=== PATIENT | female | born 1995 | race African-American/Black ===

== ENCOUNTER 2017-01-24 02:13 | Emergency (ER) | payer MEDICAID ==
[~2017-01-24] VITALS: Ht 162.6 cm; Wt 86.0 kg
[~2017-01-24 02:13] MED LIST: MOTRIN; TAM75 PO
[2017-01-24] MEDS ORDERED: DICYCLOMINE 10 MG/5 ML ORAL SYR PO STA (03:25)
[2017-01-24] MEDS ORDERED: MAGNESIUM/ALUMINUM HYDROXIDE/SIMETHICONE 30ML UDC PO STA (03:25)
[2017-01-24] MEDS ORDERED: FAMOTIDINE 20MG/2ML VIAL IV STA (03:25)
[2017-01-24] MEDS ORDERED: ONDANSETRON 4MG ODT PO ONE (03:30)
[2017-01-24] MEDS ORDERED: FAMOTIDINE 20MG TABLET PO ONE (03:30)
[2017-01-24 03:46] LABS: BASOPHILS % 0.4 % (0.0-2.0); DIFFERENTIAL COMMENT 0; EOSINOPHILS % 5.9 % (0.0-5.0); HEMOGLOBIN. 12.2 g/dL (12.0-16.0); LYMPHOCYTES % 29.9 % (20.0-50.0); MEAN CORPUSCULAR HEMOGLOBIN 24.5 pg (28.0-32.0); MEAN CORPUSCULAR VOLUME 76.4 fL (81.0-99.0); MEAN PLATELET VOLUME 8.4 fl (7.4-10.4); MONOCYTES % 8.2 % (2.0-8.0); NEUTROPHILS % 55.6 % (40.0-76.0); PLATELET 248 x1000/uL (130-400); RED BLOOD CELL COUNT 4.98 mill/uL (4.2-5.4); RED CELL DISTRIBUTION WIDTH 14.2 % (11.6-14.6); WHITE BLOOD COUNT 6.1 x1000/uL (4.5-11.0)
[2017-01-24 03:57] LABS: ALANINE AMINOTRANSFERASE 21 IU/L (13-61); ALBUMIN 3.8 g/dL (3.4-5.0); ANION GAP 13; CALCIUM 9.7 mg/dL (8.5-10.1); CARBON DIOXIDE 26 mEq/L (21-32); CHLORIDE 104 mEq/L (98-107); INDEX HEMOLYSI 1 (1-3); INDEX ICTERIC 1 (1-4); INDEX LIPEMIC 1 (1-3); LIPASE 135 IU/L (73-393); UREA NITROGEN BLOOD 8 mg/dL (7-21); eGFR > 60 mL/min (>60)
[2017-01-24 03:58] LABS: CLARITY URINE CLOUDY (CLEAR); COLOR URINE YELLOW (YELLOW); GLUCOSE URINE NEGATIVE (NEGATIVE); KETONES URINE NEGATIVE (NEGATIVE); LEUKOCYTE ESTERASE URINE NEGATIVE (NEGATIVE); NITRITE URINE NEGATIVE (NEGATIVE); OCCULT BLOOD URINE NEGATIVE (NEGATIVE); PH URINE 5.5 (4.5-8.0); PROTEIN URINE NEGATIVE (NEGATIVE); SPECIFIC GRAVITY URINE 1.024 (1.005-1.030); UROBILINOGEN URINE 0.2 E.U./dL (0.2-1.0)
[2017-01-24 04:16] LABS: RBC URINE 0-2 /hpf (0-2)
[2017-01-24 04:17] LABS: BACTERIA URINE 1+; MUCUS URINE TRACE /lpf (< = 2+); SQUAMOUS EPITHELIAL CELL URINE 2+ /lpf (RARE/1+)
[2017-01-24 04:45] VITALS: BP 110/77
== END 2017-01-24 06:10 | disposition home or self-care (01) ==
LOC: ER 02:18
DX: K52.9 Noninfective gastroenteritis and colitis, unspecified (principal); R11.0 Nausea
CPT/HCPCS: 36415; 80053; 81001; 81025; 83690; 85025; 99284; Q0162

== ENCOUNTER 2017-02-27 17:06 | Emergency (ER) | payer MEDICAID ==
[~2017-02-27] VITALS: Ht 160 cm; Wt 94.0 kg
[2017-02-27] MEDS ORDERED: MAGNESIUM/ALUMINUM HYDROXIDE/SIMETHICONE 30ML UDC PO STA (22:46)
[2017-02-27] MEDS ORDERED: ONDANSETRON 4MG ODT PO STA (22:46)
[2017-02-27] MEDS ORDERED: ACETAMINOPHEN 325MG TABLET PO STA (22:46)
[2017-02-27 23:24] LABS: CLARITY URINE CLEAR (CLEAR); COLOR URINE YELLOW (YELLOW); GLUCOSE URINE NEGATIVE (NEGATIVE); KETONES URINE TRACE (NEGATIVE); LEUKOCYTE ESTERASE URINE NEGATIVE (NEGATIVE); NITRITE URINE NEGATIVE (NEGATIVE); OCCULT BLOOD URINE NEGATIVE (NEGATIVE); PH URINE 5.5 (4.5-8.0); PROTEIN URINE NEGATIVE (NEGATIVE); SPECIFIC GRAVITY URINE 1.027 (1.005-1.030)
[2017-02-27 23:37] LABS: *AMPHETAMINES SCREEN URINE NEGATIVE (NEGATIVE); *BARBITURATES SCREEN URINE NEGATIVE (NEGATIVE); *BENZODIAZEPINES SCREEN URINE NEGATIVE (NEGATIVE); *COCAINE SCREEN URINE NEGATIVE (NEGATIVE); CANNABINOID URINE SCREEN NEGATIVE (NEGATIVE); ECSTASY MDMA SCREEN URINE NEGATIVE (NEGATIVE); METHADONE URINE SCREEN NEGATIVE (NEGATIVE); OPIATES URINE SCREEN NEGATIVE (NEGATIVE); PHENCYCLIDINE URINE SCREEN NEGATIVE (NEGATIVE)
[2017-02-27 23:45] VITALS: BP 143/102
[2017-02-27 23:56] LABS: BASOPHILS % 0.7 % (0.0-2.0); DIFFERENTIAL COMMENT 0; HEMATOCRIT. 39.6 % (36.0-48.0); HEMOGLOBIN. 12.6 g/dL (12.0-16.0); LYMPHOCYTES % 34.3 % (20.0-50.0); MEAN CORPUSCULAR HEMOGLOBIN 24.2 pg (28.0-32.0); MEAN CORPUSCULAR HGB CONC 31.7 g/dL (31.0-37.0); MEAN CORPUSCULAR VOLUME 76.3 fL (81.0-99.0); MEAN PLATELET VOLUME 8.2 fl (7.4-10.4); MONOCYTES % 7.6 % (2.0-8.0); NEUTROPHILS % 52.4 % (40.0-76.0); PLATELET 243 x1000/uL (130-400); RED CELL DISTRIBUTION WIDTH 13.6 % (11.6-14.6); WHITE BLOOD COUNT 7.3 x1000/uL (4.5-11.0)
[2017-02-28 00:01] LABS: PROTHROMBIN TIME 10.7 sec
[2017-02-28 00:02] LABS: CHLORIDE 103 mEq/L (98-107); INDEX HEMOLYSI 1 (1-3); INDEX ICTERIC 1 (1-4); INDEX LIPEMIC 1 (1-3)
[2017-02-28 00:11] LABS: ALANINE AMINOTRANSFERASE 15 IU/L (13-61); ALBUMIN 3.8 g/dL (3.4-5.0); ANION GAP 12; CALCIUM 9.5 mg/dL (8.5-10.1); CARBON DIOXIDE 27 mEq/L (21-32); LIPASE 116 IU/L (73-393); UREA NITROGEN BLOOD 12 mg/dL (7-21); eGFR > 60 mL/min (>60)
== END 2017-02-28 01:20 | disposition home or self-care (01) ==
LOC: ER 23:09
DX: R10.9 Unspecified abdominal pain (principal)
CPT/HCPCS: 36415; 80053; 80305; 81003; 81025; 83690; 85025; 85610; 99284; Q0162

== ENCOUNTER 2017-05-18 23:17 | Emergency (ER) | payer MEDICAID ==
[~2017-05-18] VITALS: Ht 157.5 cm; Wt 98.0 kg
[2017-05-19] MEDS ORDERED: KETOROLAC 30MG/ML VIAL IV ONE (06:30)
[2017-05-19] MEDS ORDERED: KETOROLAC 30MG/ML VIAL IM ONE (06:45)
[2017-05-19 06:56] LABS: BASOPHILS % 0.9 % (0.0-2.0); EOSINOPHILS % 5.1 % (0.0-5.0); HEMATOCRIT. 37.2 % (36.0-48.0); LYMPHOCYTES % 36.8 % (20.0-50.0); MEAN CORPUSCULAR HEMOGLOBIN 24.4 pg (28.0-32.0); MEAN CORPUSCULAR VOLUME 75.6 fL (81.0-99.0); MEAN PLATELET VOLUME 8.1 fl (7.4-10.4); MONOCYTES % 6.5 % (2.0-8.0); NEUTROPHILS % 50.7 % (40.0-76.0); PLATELET 225 x1000/uL (130-400); RED BLOOD CELL COUNT 4.91 mill/uL (4.2-5.4); RED CELL DISTRIBUTION WIDTH 14.3 % (11.6-14.6)
[2017-05-19 07:09] LABS: CARBON DIOXIDE 27 mEq/L (21-32); CHLORIDE 106 mEq/L (98-107)
[2017-05-19 10:35] VITALS: BP 110/75
[2017-05-23 08:16] LABS: CHLAMYDIA TRACHOMATIS NAA Negative (Negative); NEISSERIA GONORRHOEAE NAA Negative (Negative)
== END 2017-05-19 10:54 | disposition home or self-care (01) ==
LOC: ER 23:17
DX: R10.9 Unspecified abdominal pain (principal)
CPT/HCPCS: 36415; 80053; 81025; 85025; 87491; 87591; 96372; 99284; J1885; Z7610

== ENCOUNTER 2017-06-01 22:37 | Emergency (ER) | payer SELFPAY ==
[~2017-06-01] VITALS: Ht 157.5 cm; Wt 95.0 kg
[2017-06-02 02:06] VITALS: BP 111/72
[2017-06-02 03:03] LABS: CLARITY URINE CLOUDY (CLEAR); COLOR URINE YELLOW (YELLOW); GLUCOSE URINE NEGATIVE (NEGATIVE); KETONES URINE TRACE (NEGATIVE); LEUKOCYTE ESTERASE URINE 3+ (NEGATIVE); NITRITE URINE NEGATIVE (NEGATIVE); OCCULT BLOOD URINE 1+ (NEGATIVE); PH URINE 5.5 (4.5-8.0); PROTEIN URINE TRACE (NEGATIVE); SPECIFIC GRAVITY URINE 1.025 (1.005-1.030); UROBILINOGEN URINE 0.2 E.U./dL (0.2-1.0)
[2017-06-02] MEDS ORDERED: PHENAZOPYRIDINE HCL 200MG TABLET PO NR (03:30)
== END 2017-06-02 04:04 | disposition home or self-care (01) ==
LOC: ER 22:37
DX: N94.9 Unspecified condition associated with female genital organs and menstrual cycle (principal)
CPT/HCPCS: 81001; 81025; 99283

== ENCOUNTER 2017-07-04 19:14 | Emergency (ER) | payer MEDICAID ==
[~2017-07-04] VITALS: Ht 160 cm; Wt 86.0 kg
[2017-07-05 00:41] LABS: CLARITY URINE CLEAR (CLEAR); COLOR URINE YELLOW (YELLOW); GLUCOSE URINE NEGATIVE (NEGATIVE); KETONES URINE NEGATIVE (NEGATIVE); LEUKOCYTE ESTERASE URINE 2+ (NEGATIVE); NITRITE URINE NEGATIVE (NEGATIVE); OCCULT BLOOD URINE NEGATIVE (NEGATIVE); PROTEIN URINE NEGATIVE (NEGATIVE); SPECIFIC GRAVITY URINE 1.021 (1.005-1.030)
[2017-07-05] MEDS ORDERED: CEFTRIAXONE SODIUM 250 MG/VIAL IM ONE (01:00)
[2017-07-05] MEDS ORDERED: DOXYCYCLINE HYCLATE 100MG CAPSULE PO ONE (01:00)
[2017-07-05] MEDS ORDERED: LIDOCAINE HCL 1% 20ML VIAL (Pyxis) INJ INFIL ONE (01:15)
[2017-07-05 02:35] VITALS: BP 123/76
[2017-07-07 08:17] LABS: CHLAMYDIA TRACHOMATIS NAA Negative (Negative); NEISSERIA GONORRHOEAE NAA Negative (Negative)
== END 2017-07-05 03:07 | disposition home or self-care (01) ==
LOC: ER 19:14
DX: N73.9 Female pelvic inflammatory disease, unspecified (principal); N39.0 Urinary tract infection, site not specified
CPT/HCPCS: 81001; 81025; 87210; 87491; 87591; 96372; 99284; J0696; J3490; Z7610

== ENCOUNTER 2017-09-26 17:07 | Emergency (ER) | payer MEDICAID ==
[~2017-09-26] VITALS: Ht 157.5 cm; Wt 91.0 kg
[2017-09-26 21:31] LABS: CLARITY URINE CLEAR (CLEAR); COLOR URINE YELLOW (YELLOW); GLUCOSE URINE NEGATIVE (NEGATIVE); KETONES URINE NEGATIVE (NEGATIVE); LEUKOCYTE ESTERASE URINE 3+ (NEGATIVE); NITRITE URINE NEGATIVE (NEGATIVE); OCCULT BLOOD URINE NEGATIVE (NEGATIVE); PH URINE 6.5 (4.5-8.0); PROTEIN URINE NEGATIVE (NEGATIVE); SPECIFIC GRAVITY URINE 1.014 (1.005-1.030)
[2017-09-27] MEDS ORDERED: AZITHROMYCIN 500 MG TABLET PO ONE (00:30)
[2017-09-27] MEDS ORDERED: CEFTRIAXONE SODIUM 250 MG/VIAL IM ONE (00:30)
[2017-09-27] MEDS ORDERED: FLUCONAZOLE 150MG TABLET PO ONE (00:30)
[2017-09-27] MEDS ORDERED: METRONIDAZOLE 500MG TABLET PO ONE (00:30)
[2017-09-27] MEDS ORDERED: LIDOCAINE HCL 1% 20ML VIAL (Pyxis) INJ INFIL ONE (00:30)
[2017-09-27] MEDS ORDERED: METRONIDAZOLE 500MG TABLET PO NR (01:15)
[2017-09-27] MEDS ORDERED: ONDANSETRON 4MG ODT PO NR (01:15)
[2017-09-27 02:08] VITALS: BP 120/85
[2017-10-01 15:07] LABS: CHLAMYDIA TRACHOMATIS NAA Negative (Negative); NEISSERIA GONORRHOEAE NAA Negative (Negative)
== END 2017-09-27 02:12 | disposition home or self-care (01) ==
LOC: ER 18:13
DX: A59.9 Trichomoniasis, unspecified (principal); Z88.0 Allergy status to penicillin; Z87.440 Personal history of urinary (tract) infections
CPT/HCPCS: 81001; 81025; 87491; 87591; 96372; 99284; J0696; J3490; Q0162

== ENCOUNTER 2018-03-06 10:25 | Emergency (ER) | payer MEDICAID ==
[~2018-03-06] VITALS: Ht 160 cm; Wt 82.0 kg
[2018-03-06] MEDS ORDERED: LIDOCAINE HCL 1% 20ML VIAL (Pyxis) INJ INFIL ONE (13:00)
[2018-03-06] MEDS ORDERED: AZITHROMYCIN 500 MG TABLET PO ONE (13:00)
[2018-03-06] MEDS ORDERED: CEFTRIAXONE SODIUM 250 MG/VIAL IM ONE (13:00)
[2018-03-06] MEDS ORDERED: LIDOCAINE HCL/PF 1% 10 MG/ML 30ML VIAL INFIL ONE (13:30)
[2018-03-06 13:35] LABS: CLARITY URINE CLOUDY (CLEAR); COLOR URINE DARK YELLOW (YELLOW); KETONES URINE TRACE (NEGATIVE); LEUKOCYTE ESTERASE URINE 2+ (NEGATIVE); NITRITE URINE NEGATIVE (NEGATIVE); OCCULT BLOOD URINE NEGATIVE (NEGATIVE); PROTEIN URINE TRACE (NEGATIVE); SPECIFIC GRAVITY URINE 1.032 (1.005-1.030)
[2018-03-06 15:00] VITALS: BP 128/78
== END 2018-03-06 15:19 | disposition home or self-care (01) ==
LOC: ER 11:36
DX: A59.9 Trichomoniasis, unspecified (principal); N39.0 Urinary tract infection, site not specified; F17.200 Nicotine dependence, unspecified, uncomplicated; Z88.0 Allergy status to penicillin
CPT/HCPCS: 81003; 81025; 87086; 87210; 87491; 87591; 96372; 99284; J0696; J3490

== ENCOUNTER 2018-04-20 03:30 | Emergency (ER) | payer MEDICAID ==
[~2018-04-20] VITALS: Ht 172.7 cm; Wt 95.0 kg
[2018-04-20] MEDS ORDERED: KETOROLAC 60MG/2ML VIAL IM ONE (06:30)
[2018-04-20 08:41] VITALS: BP 101/60
== END 2018-04-20 08:43 | disposition home or self-care (01) ==
LOC: ER 03:30
DX: S00.83XA Contusion of other part of head, initial encounter (principal); S40.812A Abrasion of left upper arm, initial encounter; Z88.0 Allergy status to penicillin; Y04.0XXA Assault by unarmed brawl or fight, initial encounter; Y93.89 Activity, other specified; Y92.018 Other place in single-family (private) house as the place of occurrence of the external cause
CPT/HCPCS: 70160; 96372; 99284; J1885

== ENCOUNTER 2018-05-12 09:30 | Emergency (ER) | payer MEDICAID ==
[~2018-05-12] VITALS: Ht 160 cm; Wt 96.0 kg
[2018-05-12 10:45] LABS: CLARITY URINE CLOUDY (CLEAR); COLOR URINE YELLOW (YELLOW); KETONES URINE NEGATIVE (NEGATIVE); LEUKOCYTE ESTERASE URINE 3+ (NEGATIVE); NITRITE URINE NEGATIVE (NEGATIVE); OCCULT BLOOD URINE TRACE (NEGATIVE); PROTEIN URINE NEGATIVE (NEGATIVE); SPECIFIC GRAVITY URINE 1.022 (1.005-1.030); UROBILINOGEN URINE 0.2 E.U./dL (0.2-1.0)
[2018-05-12] MEDS ORDERED: LIDOCAINE HCL 1% 20ML VIAL (Pyxis) INJ INFIL ONE (11:15)
[2018-05-12] MEDS ORDERED: CEFTRIAXONE SODIUM 250 MG/VIAL IM ONE (11:15)
[2018-05-12] MEDS ORDERED: AZITHROMYCIN 500 MG TABLET PO ONE (11:15)
[2018-05-12] MEDS: LIDOCAINE HCL/PF 1% 10 MG/ML 5ML VIAL IJ NR ×2 (12:04→14:08)
[2018-05-12 14:10] VITALS: BP 132/78
[2018-05-16 04:17] LABS: CHLAMYDIA TRACHOMATIS NAA Negative (Negative); NEISSERIA GONORRHOEAE NAA Negative (Negative)
== END 2018-05-12 14:10 | disposition home or self-care (01) ==
LOC: ER 09:34
DX: N73.8 Other specified female pelvic inflammatory diseases (principal); N39.0 Urinary tract infection, site not specified; Z88.0 Allergy status to penicillin
CPT/HCPCS: 81003; 81025; 87077; 87086; 87210; 87491; 87591; 96372; 99284; J0696; J3490

== ENCOUNTER 2018-05-25 12:30 | Emergency (ER) | payer MEDICAID ==
[~2018-05-25] VITALS: Ht 160 cm; Wt 97.0 kg
[2018-05-25 12:59] LABS: CLARITY URINE CLOUDY (CLEAR); COLOR URINE YELLOW (YELLOW); KETONES URINE NEGATIVE (NEGATIVE); LEUKOCYTE ESTERASE URINE 3+ (NEGATIVE); NITRITE URINE NEGATIVE (NEGATIVE); OCCULT BLOOD URINE NEGATIVE (NEGATIVE); PROTEIN URINE NEGATIVE (NEGATIVE); SPECIFIC GRAVITY URINE 1.018 (1.005-1.030); UROBILINOGEN URINE 0.2 E.U./dL (0.2-1.0)
[2018-05-25 16:15] VITALS: BP 130/80
== END 2018-05-25 16:53 | disposition home or self-care (01) ==
LOC: ER 12:44
DX: N39.0 Urinary tract infection, site not specified (principal); N89.8 Other specified noninflammatory disorders of vagina; Z88.0 Allergy status to penicillin
CPT/HCPCS: 81003; 81025; 87086; 87106; 99284

== ENCOUNTER 2018-09-08 02:58 | Emergency (ER) | payer MEDICAID ==
[~2018-09-08] VITALS: Ht 160 cm; Wt 103.0 kg
[2018-09-08] MEDS ORDERED: ACETAMINOPHEN 325MG TABLET PO ONE (05:00)
[2018-09-08 05:03] VITALS: BP 112/58
== END 2018-09-08 05:06 | disposition home or self-care (01) ==
LOC: ER 04:06
DX: S09.8XXA Other specified injuries of head, initial encounter (principal); R42 Dizziness and giddiness; R53.1 Weakness; V49.59XA Passenger injured in collision with other motor vehicles in traffic accident, initial encounter; Y93.89 Activity, other specified; Y92.89 Other specified places as the place of occurrence of the external cause; Y99.8 Other external cause status; Z87.440 Personal history of urinary (tract) infections; Z88.0 Allergy status to penicillin
CPT/HCPCS: 81025; 99284

== ENCOUNTER 2018-10-02 02:04 | Emergency (ER) | payer MEDICAID ==
[~2018-10-02] VITALS: Ht 160 cm; Wt 101.0 kg
[2018-10-02] MEDS ORDERED: LIDOCAINE HCL 1% 20ML VIAL (Pyxis) INJ INFIL ONE (03:00)
[2018-10-02] MEDS ORDERED: AZITHROMYCIN 500 MG TABLET PO ONE (03:00)
[2018-10-02] MEDS ORDERED: CEFTRIAXONE SODIUM 250 MG/VIAL IM ONE (03:00)
[2018-10-02 05:00] VITALS: BP 114/71
[2018-10-04 04:15] LABS: CHLAMYDIA TRACHOMATIS NAA Negative (Negative); NEISSERIA GONORRHOEAE NAA Negative (Negative)
== END 2018-10-02 05:27 | disposition home or self-care (01) ==
LOC: ER 04:51
DX: N89.8 Other specified noninflammatory disorders of vagina (principal); L50.9 Urticaria, unspecified
CPT/HCPCS: 81025; 87210; 87491; 87591; 96372; 99284; J0696

== ENCOUNTER 2019-04-23 01:32 | Emergency (ER) | payer MEDICAID ==
[~2019-04-23] VITALS: Ht 160 cm; Wt 96.0 kg
[2019-04-23 01:50] VITALS: BP 123/74
== END 2019-04-23 02:58 | disposition home or self-care (01) ==
LOC: ER 01:56
DX: J02.9 Acute pharyngitis, unspecified (principal)
CPT/HCPCS: 99283

== ENCOUNTER 2019-04-24 09:08 | Emergency (ER) | payer MEDICAID ==
[~2019-04-24] VITALS: Ht 157.5 cm; Wt 97.0 kg
[2019-04-24] MEDS ORDERED: DEXAMETHASONE 10 MG/ML VIAL PO ONE (10:30)
[2019-04-24] MEDS ORDERED: KETOROLAC 60MG/2ML VIAL IM ONE (10:30)
[2019-04-24 11:35] VITALS: BP 111/60
== END 2019-04-24 11:45 | disposition home or self-care (01) ==
LOC: ER 09:08
DX: J02.0 Streptococcal pharyngitis (principal); Z88.0 Allergy status to penicillin
CPT/HCPCS: 81025; 96372; 99283; J1100; J1885; Z7610

== ENCOUNTER 2019-08-24 14:53 | Emergency (ER) | payer MEDICAID ==
[~2019-08-24] VITALS: Ht 160 cm; Wt 105.0 kg
[2019-08-24 16:00] LABS: CLARITY URINE CLEAR (CLEAR); COLOR URINE YELLOW (YELLOW); KETONES URINE NEGATIVE (NEGATIVE); LEUKOCYTE ESTERASE URINE 1+ (NEGATIVE); NITRITE URINE NEGATIVE (NEGATIVE); OCCULT BLOOD URINE NEGATIVE (NEGATIVE); PH URINE 6.5 (4.5-8.0); PROTEIN URINE NEGATIVE (NEGATIVE); SPECIFIC GRAVITY URINE 1.007 (1.005-1.030); UROBILINOGEN URINE 0.2 E.U./dL (0.2-1.0)
[2019-08-24 20:00] VITALS: BP 118/88
[2019-08-27 06:10] LABS: CHLAMYDIA TRACHOMATIS NAA Negative (Negative); NEISSERIA GONORRHOEAE NAA Negative (Negative)
== END 2019-08-24 21:21 | disposition home or self-care (01) ==
LOC: ER 15:07
DX: N39.0 Urinary tract infection, site not specified (principal); N76.0 Acute vaginitis; Z88.0 Allergy status to penicillin
CPT/HCPCS: 81003; 81025; 87210; 87491; 87591; 99283

== ENCOUNTER 2020-01-06 22:06 | Emergency (ER) | payer MEDICAID ==
[~2020-01-06] VITALS: Ht 157.5 cm; Wt 86.0 kg
[2020-01-07] MEDS ORDERED: AZITHROMYCIN 500 MG TABLET PO ONE (01:30)
[2020-01-07] MEDS ORDERED: GENTAMICIN SULF 40MG/ML 2ML VIAL IM ONE (01:30)
[2020-01-07] MEDS ORDERED: METRONIDAZOLE 500MG TABLET PO ONE (01:30)
[2020-01-07 02:54] VITALS: BP 130/67
[2020-01-07 07:22] LABS: CLARITY URINE CLEAR (CLEAR); COLOR URINE YELLOW (YELLOW); KETONES URINE NEGATIVE (NEGATIVE); LEUKOCYTE ESTERASE URINE NEGATIVE (NEGATIVE); NITRITE URINE NEGATIVE (NEGATIVE); OCCULT BLOOD URINE NEGATIVE (NEGATIVE); PH URINE 5.5 (4.5-8.0); PROTEIN URINE NEGATIVE (NEGATIVE); UROBILINOGEN URINE 0.2 E.U./dL (0.2-1.0)
[2020-01-09 04:10] LABS: NEISSERIA GONORRHOEAE NAA Negative (Negative)
== END 2020-01-07 02:57 | disposition home or self-care (01) ==
LOC: ER 22:06
DX: N89.8 Other specified noninflammatory disorders of vagina (principal); A56.8 Sexually transmitted chlamydial infection of other sites; R03.0 Elevated blood-pressure reading, without diagnosis of hypertension
CPT/HCPCS: 81003; 81025; 87491; 87591; 96372; 99283; J1580

== ENCOUNTER 2020-03-26 21:56 | Emergency (ER) | payer MEDICAID ==
[~2020-03-26] VITALS: Ht 160 cm; Wt 104.0 kg
[2020-03-26 23:48] VITALS: BP 135/74
== END 2020-03-26 23:48 | disposition home or self-care (01) ==
LOC: ER 21:56
DX: J02.9 Acute pharyngitis, unspecified (principal); R13.10 Dysphagia, unspecified; Z88.0 Allergy status to penicillin; Z88.2 Allergy status to sulfonamides
CPT/HCPCS: 99283

== ENCOUNTER 2020-10-29 00:45 | Emergency (ER) | payer MEDICAID ==
[~2020-10-29] VITALS: Ht 180.3 cm; Wt 112.0 kg
[2020-10-29 02:08] VITALS: BP 131/82
[2020-10-29] MEDS ORDERED: VISCOUS LIDOCAINE 2% 15 ML UDC MM STA (02:12)
== END 2020-10-29 03:32 | disposition home or self-care (01) ==
LOC: ER 00:45
DX: J02.9 Acute pharyngitis, unspecified (principal); Z20.822 Contact with and (suspected) exposure to COVID-19; Z88.0 Allergy status to penicillin; Z88.8 Allergy status to other drugs, medicaments and biological substances
CPT/HCPCS: 87430; 99283

== ENCOUNTER 2021-06-24 17:20 | Emergency (ER) | payer MEDICAID ==
[~2021-06-24] VITALS: Ht 160 cm; Wt 115.0 kg
[2021-06-24 17:39] VITALS: BP 154/92
== END 2021-06-24 18:58 | disposition left against medical advice (07) ==
LOC: ER 17:20
DX: Z53.21 Procedure and treatment not carried out due to patient leaving prior to being seen by health care provider (principal)

== ENCOUNTER 2021-07-19 23:21 | Emergency (ER) | payer MEDICAID ==
[~2021-07-19] VITALS: Ht 165.1 cm; Wt 100.0 kg
[2021-07-19 23:28] VITALS: BP 140/76
[2021-07-20] MEDS ORDERED: AZIT250T12 MT (00:07)
[2021-07-20] MEDS ORDERED: IBUP-2030 MT (00:07)
[2021-07-20] MEDS ORDERED: KETOROLAC 30MG/ML VIAL IM ONE (00:15)
== END 2021-07-20 00:19 | disposition home or self-care (01) ==
LOC: ER 23:21
DX: J02.9 Acute pharyngitis, unspecified (principal)
CPT/HCPCS: 81025; 99283

== ENCOUNTER 2021-11-17 17:48 | Emergency (ER) | payer MEDICAID ==
[~2021-11-17] VITALS: Ht 157.5 cm; Wt 102.0 kg
[~2021-11-17 17:48] MED LIST changes: +AZIT250T12 MT; +IBUP-2030 MT; -MOTRIN; -TAM75 PO
[2021-11-17] MEDS ORDERED: DIAZEPAM 5 MG TABLET PO ONE (20:45)
[2021-11-17] MEDS ORDERED: IBUPROFEN 800MG TABLET PO ONE (20:45)
[2021-11-17] MEDS ORDERED: IBUP-2030 MT (21:42)
[2021-11-17] MEDS ORDERED: METH-773 MT (21:42)
[2021-11-17 22:07] VITALS: BP 157/100
== END 2021-11-17 22:10 | disposition home or self-care (01) ==
LOC: ER 17:48
DX: S76.812A Strain of other specified muscles, fascia and tendons at thigh level, left thigh, initial encounter (principal); Z91.040 Latex allergy status; Z91.010 Allergy to peanuts; X58.XXXA Exposure to other specified factors, initial encounter; Y93.89 Activity, other specified; Y92.89 Other specified places as the place of occurrence of the external cause; Z88.0 Allergy status to penicillin; Z88.8 Allergy status to other drugs, medicaments and biological substances
CPT/HCPCS: 73560; 99283

== ENCOUNTER 2022-03-16 04:38 | Emergency (ER) | payer MEDICAID ==
[~2022-03-16] VITALS: Ht 162.6 cm; Wt 109.0 kg
[~2022-03-16 04:38] MED LIST changes: +METH-773 MT
[2022-03-16] MEDS ORDERED: ONDANSETRON HCL 4MG/2ML INJ IV STA (05:10)
[2022-03-16 05:52] LABS: BASOPHILS % 0.4 % (0.0-2.0); CHLORIDE 107 mEq/L (98-107); EOSINOPHILS % 4.8 % (0.0-5.0); HEMATOCRIT. 38.5 % (36.0-48.0); HEMOGLOBIN. 12.4 g/dL (12.0-16.0); LYMPHOCYTES % 20.2 % (20.0-50.0); MEAN CORPUSCULAR HEMOGLOBIN 24.3 pg (28.0-32.0); MEAN CORPUSCULAR VOLUME 75.6 fL (81.0-99.0); MEAN PLATELET VOLUME 7.8 fl (7.4-10.4); MONOCYTES % 5.4 % (2.0-8.0); NEUTROPHILS % 69.2 % (40.0-76.0); PLATELET 304 x1000/uL (130-400); RED CELL DISTRIBUTION WIDTH 14.7 % (11.6-14.6)
[2022-03-16 06:00] LABS: ETHANOL BLOOD 192 mg/dL
[2022-03-16 06:10] LABS: HCG SCREEN POSITIVE
[2022-03-16] MEDS ORDERED: TOPUD PO (09:17)
[2022-03-16 09:25] VITALS: BP 135/70
== END 2022-03-16 10:45 | disposition home or self-care (01) ==
LOC: ER 04:38
DX: O20.0 Threatened abortion (principal); O26.891 Other specified pregnancy related conditions, first trimester; R10.30 Lower abdominal pain, unspecified; O99.311 Alcohol use complicating pregnancy, first trimester; F10.10 Alcohol abuse, uncomplicated; Y90.6 Blood alcohol level of 120-199 mg/100 ml; Z3A.01 Less than 8 weeks gestation of pregnancy; Z88.3 Allergy status to other anti-infective agents; Z91.040 Latex allergy status; Z91.018 Allergy to other foods; Z91.013 Allergy to seafood; Z88.0 Allergy status to penicillin
CPT/HCPCS: 36415; 76801; 76817; 80053; 80320; 81025; 84702; 84703; 85025; 86850; 86900; 86901; 96374; 99284; J2405; G0480

== ENCOUNTER 2022-03-28 17:23 | Emergency (ER) | payer MEDICAID ==
[~2022-03-28] VITALS: Ht 160 cm; Wt 109.0 kg
[~2022-03-28 17:23] MED LIST changes: +TOPUD PO
[2022-03-28 17:32] VITALS: BP 152/91
[2022-03-28] MEDS ORDERED: ONDANSETRON HCL 4MG/2ML INJ IV STA (18:24)
[2022-03-28 18:25] LABS: CHLORIDE 104 mEq/L (98-107)
[2022-03-28] MEDS ORDERED: SODIUM CHLORIDE 0.9% 1,000 ML IV ONE (18:30)
[2022-03-28 18:51] LABS: B-HCG QUANTITATIVE 29090 mIU/mL (<3)
[2022-03-28 18:58] LABS: BASOPHILS % 0.5 % (0.0-2.0); EOSINOPHILS % 4.8 % (0.0-5.0); HEMATOCRIT. 34.4 % (36.0-48.0); HEMOGLOBIN. 10.9 g/dL (12.0-16.0); MEAN CORPUSCULAR HEMOGLOBIN 24.4 pg (28.0-32.0); MEAN CORPUSCULAR VOLUME 77.1 fL (81.0-99.0); MEAN PLATELET VOLUME 7.9 fl (7.4-10.4); NEUTROPHILS % 60.7 % (40.0-76.0); PLATELET 245 x1000/uL (130-400); RED BLOOD CELL COUNT 4.46 mill/uL (4.2-5.4); RED CELL DISTRIBUTION WIDTH 14.8 % (11.6-14.6)
[2022-03-28 19:14] LABS: CLARITY URINE CLEAR (CLEAR); COLOR URINE YELLOW (YELLOW); KETONES URINE NEGATIVE (NEGATIVE); LEUKOCYTE ESTERASE URINE TRACE (NEGATIVE); NITRITE URINE NEGATIVE (NEGATIVE); OCCULT BLOOD URINE NEGATIVE (NEGATIVE); PROTEIN URINE NEGATIVE (NEGATIVE); SPECIFIC GRAVITY URINE 1.008 (1.005-1.030); UROBILINOGEN URINE 0.2 E.U./dL (0.2-1.0)
[2022-03-28] MEDS ORDERED: ONDA4TAB11 PO (21:41)
== END 2022-03-28 22:01 | disposition home or self-care (01) ==
LOC: ER 17:23
DX: O46.91 Antepartum hemorrhage, unspecified, first trimester (principal); Z3A.01 Less than 8 weeks gestation of pregnancy
CPT/HCPCS: 36415; 76801; 76817; 80053; 81003; 81025; 84702; 85025; 86850; 86900; 86901; 96361; 96374; 99284; J2405; J7030

== ENCOUNTER 2022-05-06 21:03 | Emergency (ER) | payer MEDICAID ==
[~2022-05-06] VITALS: Ht 157.5 cm; Wt 118.0 kg
[~2022-05-06 21:03] MED LIST changes: +ONDA4TAB11 PO
[2022-05-07 02:33] VITALS: BP 111/75
== END 2022-05-07 02:33 | disposition home or self-care (01) ==
LOC: ER 21:03
DX: O26.851 Spotting complicating pregnancy, first trimester (principal); O26.891 Other specified pregnancy related conditions, first trimester; R11.0 Nausea; R03.0 Elevated blood-pressure reading, without diagnosis of hypertension; Z3A.11 11 weeks gestation of pregnancy
CPT/HCPCS: 81025; 99282

== ENCOUNTER 2022-06-27 20:54 | Emergency (ER) | payer MEDICAID ==
[~2022-06-27] VITALS: Ht 160 cm; Wt 114.3 kg
[2022-06-27] MEDS ORDERED: ONDA4TAB50 MT (22:41)
[2022-06-27] MEDS ORDERED: ONDANSETRON 4MG ODT PO ONE (22:45)
[2022-06-27 22:57] VITALS: BP 119/78
== END 2022-06-27 22:58 | disposition home or self-care (01) ==
LOC: ER 20:54
DX: R11.2 Nausea with vomiting, unspecified (principal); Z76.0 Encounter for issue of repeat prescription; Z88.0 Allergy status to penicillin; Z91.040 Latex allergy status; Z88.8 Allergy status to other drugs, medicaments and biological substances
CPT/HCPCS: 99283; Q0162

== ENCOUNTER 2022-07-21 15:11 | Emergency (ER) | payer MEDICAID ==
[~2022-07-21] VITALS: Ht 157.5 cm; Wt 104.0 kg
[~2022-07-21 15:11] MED LIST changes: +ONDA4TAB50 MT
[2022-07-21] MEDS ORDERED: SODIUM CHLORIDE 0.9% 1,000 ML IV ONE (15:30)
[2022-07-21 15:44] LABS: BASOPHILS % 0.4 % (0.0-2.0); EOSINOPHILS % 3.6 % (0.0-5.0); HEMOGLOBIN. 10.3 g/dL (12.0-16.0); LYMPHOCYTES % 17.7 % (20.0-50.0); MEAN CORPUSCULAR HEMOGLOBIN 25.6 pg (28.0-32.0); MEAN CORPUSCULAR VOLUME 77.2 fL (81.0-99.0); MEAN PLATELET VOLUME 8.7 fl (7.4-10.4); MONOCYTES % 6.9 % (2.0-8.0); NEUTROPHILS % 71.4 % (40.0-76.0); PLATELET 193 x1000/uL (130-400); RED BLOOD CELL COUNT 4.01 mill/uL (4.2-5.4); RED CELL DISTRIBUTION WIDTH 13.8 % (11.6-14.6)
[2022-07-21 15:51] LABS: CHLORIDE 104 mEq/L (98-107)
[2022-07-21 16:14] LABS: B-HCG QUANTITATIVE 6229 mIU/mL (<3)
[2022-07-21 18:59] VITALS: BP 120/60
== END 2022-07-21 19:08 | disposition home or self-care (01) ==
LOC: ER 15:11
DX: O26.892 Other specified pregnancy related conditions, second trimester (principal); R53.1 Weakness; Z3A.22 22 weeks gestation of pregnancy; Z79.899 Other long term (current) drug therapy; Z88.0 Allergy status to penicillin
CPT/HCPCS: 36415; 76805; 80053; 84702; 85025; 93005; 96360; 99285; J7030

== ENCOUNTER 2022-09-13 18:20 | Observation (INO) | payer MEDICAID ==
[~2022-09-13] VITALS: Ht 157.5 cm; Wt 117.9 kg
[2022-09-13] MEDS: LACTATED RINGERS 1,000 ML IV SCH (19:29)
[2022-09-13 20:18] LABS: CLARITY URINE CLEAR (CLEAR); COLOR URINE YELLOW (YELLOW); KETONES URINE 3+ (NEGATIVE); LEUKOCYTE ESTERASE URINE 1+ (NEGATIVE); NITRITE URINE NEGATIVE (NEGATIVE); OCCULT BLOOD URINE NEGATIVE (NEGATIVE); PH URINE 6.5 (4.5-8.0); PROTEIN URINE NEGATIVE (NEGATIVE); UROBILINOGEN URINE 0.2 E.U./dL (0.2-1.0)
[2022-09-13] MEDS ORDERED: CEFAZOLIN 2,000 MG in DEXT 5% WATER 100 ML IV NR (22:00)
[2022-09-14] MEDS: LACTATED RINGERS 1,000 ML IV SCH ×3 (05:48→09:36)
[2022-09-14] MEDS ORDERED: CEFAZOLIN 2,000 MG in DEXT 5% WATER 100 ML IV NR (08:30)
== END 2022-09-14 11:30 | disposition home or self-care (01) ==
LOC: 8 EST LDRP 18:20
PROVIDERS: ADMIT Obstetrics & Gynecology; ATTEND Obstetrics & Gynecology
DX: O26.893 Other specified pregnancy related conditions, third trimester (principal); R10.30 Lower abdominal pain, unspecified; O62.9 Abnormality of forces of labor, unspecified; Z3A.31 31 weeks gestation of pregnancy
CPT/HCPCS: 59025; 81003; 82731; 96360; 96361; 96365; 96366; 99281; G0378; J0690; J7060; J7120

== ENCOUNTER 2022-09-30 15:42 | Observation (INO) | payer MEDICAID ==
[~2022-09-30] VITALS: Ht 160 cm; Wt 104.3 kg
[2022-09-30] MEDS ORDERED: LACTATED RINGERS 1,000 ML IV SCH (17:00)
== END 2022-09-30 18:46 | disposition home or self-care (01) ==
LOC: 8 EST A/PP 15:42
PROVIDERS: ADMIT Obstetrics & Gynecology; ATTEND Obstetrics & Gynecology
DX: O46.93 Antepartum hemorrhage, unspecified, third trimester (principal); O62.9 Abnormality of forces of labor, unspecified; Z3A.33 33 weeks gestation of pregnancy
CPT/HCPCS: 59025; 82731; 96360; G0378; 99281; G0379

== ENCOUNTER 2022-11-09 18:05 | Inpatient (IN) | payer MEDICAID ==
[~2022-11-09] VITALS: Ht 157.5 cm; Wt 108.9 kg
[2022-11-09] MEDS ORDERED: MISOPROSTOL 100MCG TABLET RC SCH (18:45)
[2022-11-09] MEDS ORDERED: METHYLERGONOVINE MALEATE 0.2 MG/ML IM PRN (18:45)
[2022-11-09] MEDS ORDERED: BUTORPHANOL TARTRATE 2 MG/ML VIAL IV PRN (18:45)
[2022-11-09] MEDS ORDERED: RHO(D) IMMUNE GLOBULIN 300 MCG/SYR IM NR (18:45)
[2022-11-09] MEDS ORDERED: CARBOPROST TROMETHAMINE 250 MCG/ML AMPUL IM PRN (18:45)
[2022-11-09] MEDS ORDERED: OXYTOCIN 30 UNITS/500ML NS PMX 500 ML IV SCH (18:45)
[2022-11-09] MEDS ORDERED: NALOXONE HCL 0.4 MG/ML 1ML VIAL IM PRN (18:45)
[2022-11-09] MEDS ORDERED: LIDOCAINE HCL 1% 20ML VIAL (Pyxis) INJ INFIL SCH (18:45)
[2022-11-09] MEDS: LACTATED RINGERS 1,000 ML IV SCH (19:13)
[2022-11-09 19:56] LABS: CLARITY URINE CLEAR (CLEAR); COLOR URINE YELLOW (YELLOW); KETONES URINE TRACE (NEGATIVE); LEUKOCYTE ESTERASE URINE NEGATIVE (NEGATIVE); NITRITE URINE NEGATIVE (NEGATIVE); OCCULT BLOOD URINE NEGATIVE (NEGATIVE); PROTEIN URINE TRACE (NEGATIVE); SPECIFIC GRAVITY URINE 1.023 (1.005-1.030); UROBILINOGEN URINE 0.2 E.U./dL (0.2-1.0)
[2022-11-09 19:58] LABS: BASOPHILS % 0.4 % (0.0-2.0); EOSINOPHILS % 1.7 % (0.0-5.0); HEMATOCRIT. 35.5 % (36.0-48.0); HEMOGLOBIN. 11.2 g/dL (12.0-16.0); LYMPHOCYTES % 16.8 % (20.0-50.0); MEAN CORPUSCULAR HEMOGLOBIN 23.8 pg (28.0-32.0); MEAN CORPUSCULAR VOLUME 75.7 fL (81.0-99.0); MEAN PLATELET VOLUME 9.3 fl (7.4-10.4); MONOCYTES % 9.2 % (2.0-8.0); NEUTROPHILS % 71.9 % (40.0-76.0); PLATELET 193 x1000/uL (130-400); RED BLOOD CELL COUNT 4.69 mill/uL (4.2-5.4); RED CELL DISTRIBUTION WIDTH 14.9 % (11.6-14.6)
[2022-11-09] MEDS ORDERED: CLINDAMYCIN 900 MG PREMIX 50 ML IV SCH (20:00)
[2022-11-09 20:16] LABS: *AMPHETAMINES SCREEN URINE NEGATIVE (NEGATIVE); *BARBITURATES SCREEN URINE NEGATIVE (NEGATIVE); *BENZODIAZEPINES SCREEN URINE NEGATIVE (NEGATIVE); *COCAINE SCREEN URINE NEGATIVE (NEGATIVE); CANNABINOID URINE SCREEN NEGATIVE (NEGATIVE); METHADONE URINE SCREEN NEGATIVE (NEGATIVE); OPIATES URINE SCREEN NEGATIVE (NEGATIVE); PHENCYCLIDINE URINE SCREEN NEGATIVE (NEGATIVE)
[2022-11-09 20:51] LABS: INR 0.9; PARTIAL THROMBOPLASTIN TIME 24.3 sec (23.4-31.0); PROTHROMBIN TIME 10.1 sec (9.6-11.0)
[2022-11-09 21:16] LABS: HEPATITIS B SURFACE ANTIGEN NEGATIVE
[2022-11-10] MEDS: LACTATED RINGERS 1,000 ML IV SCH
[2022-11-10] MEDS ORDERED: ROPIVACAINE HCL/PF EPIDURAL 0 ML EPI ONE (00:23)
[2022-11-10] MEDS ORDERED: ROPIVACAINE HCL/PF EPIDURAL 200 ML EPI SCH (00:30)
[2022-11-10] MEDS ORDERED: METHYLERGONOVINE MALEATE 0.2 MG/ML IM PRN (03:15)
[2022-11-10] MEDS ORDERED: RHO(D) IMMUNE GLOBULIN 300 MCG/SYR IM PRN (03:15)
[2022-11-10] MEDS ORDERED: LANOLIN OINT 7GM TUBE TOP PRN (03:15)
[2022-11-10] MEDS ORDERED: OXYTOCIN 30 UNITS/500ML NS PMX 500 ML IV SCH (03:15)
[2022-11-10] MEDS ORDERED: IBUPROFEN 400MG TABLET PO PRN (03:15)
[2022-11-10 04:20] VITALS: BP 121/78
[2022-11-10 07:48] VITALS: BP 127/71
[2022-11-10] MEDS: PRENATAL VIT/FE FUMARATE/FA TABLET PO SCH (08:21)
[2022-11-10] MEDS: IBUPROFEN 800MG TABLET PO PRN (15:30)
[2022-11-10 15:46] VITALS: BP 100/51
[2022-11-10 20:00] VITALS: BP 96/45
[2022-11-11 04:00] VITALS: BP 116/84
[2022-11-11 06:48] LABS: BASOPHILS % 0.5 % (0.0-2.0); EOSINOPHILS % 1.7 % (0.0-5.0); HEMATOCRIT. 31.6 % (36.0-48.0); HEMOGLOBIN. 10.2 g/dL (12.0-16.0); LYMPHOCYTES % 24.9 % (20.0-50.0); MEAN CORPUSCULAR HEMOGLOBIN 24.4 pg (28.0-32.0); MEAN CORPUSCULAR VOLUME 75.5 fL (81.0-99.0); MEAN PLATELET VOLUME 8.9 fl (7.4-10.4); MONOCYTES % 7.5 % (2.0-8.0); NEUTROPHILS % 65.4 % (40.0-76.0); PLATELET 201 x1000/uL (130-400); RED BLOOD CELL COUNT 4.19 mill/uL (4.2-5.4); RED CELL DISTRIBUTION WIDTH 15.1 % (11.6-14.6)
[2022-11-11 07:30] VITALS: BP 121/82
[2022-11-11] MEDS: PRENATAL VIT/FE FUMARATE/FA TABLET PO SCH (08:53)
[2022-11-11] MEDS: IBUPROFEN 800MG TABLET PO PRN (09:48)
[2022-11-11 15:30] VITALS: BP 114/69
[2022-11-11 19:25] VITALS: BP 137/76
[2022-11-12] MEDS: IBUPROFEN 800MG TABLET PO PRN (01:29)
[2022-11-12 02:00] VITALS: BP 135/72
[2022-11-12 08:00] VITALS: BP 112/56
[2022-11-12] MEDS: PRENATAL VIT/FE FUMARATE/FA TABLET PO SCH (09:00)
== END 2022-11-12 15:50 | disposition home or self-care (01) | DRG 560 ==
LOC: OBSVTOIN 18:05 → 8 EST LDRP 18:05 → 8EST 11-10 03:00
PROVIDERS: ADMIT Obstetrics & Gynecology; ATTEND Obstetrics & Gynecology
PROC: 10E0XZZ Delivery of Products of Conception, External Approach (ICD-10-PCS; principal; 2022-11-09)
PROC: 0HQ9XZZ Repair Perineum Skin, External Approach (ICD-10-PCS; 2022-11-09)
PROC: 3E0R3BZ Introduction of Anesthetic Agent into Spinal Canal, Percutaneous Approach (ICD-10-PCS; 2022-11-09)
PROC: 00HU33Z Insertion of Infusion Device into Spinal Canal, Percutaneous Approach (ICD-10-PCS; 2022-11-09)
DX: O69.81X0 Labor and delivery complicated by cord around neck, without compression, not applicable or unspecified (principal); Z37.0 Single live birth; D62 Acute posthemorrhagic anemia; Z20.822 Contact with and (suspected) exposure to COVID-19; Z3A.39 39 weeks gestation of pregnancy; O70.0 First degree perineal laceration during delivery; O90.81 Anemia of the puerperium
CPT/HCPCS: 36415; 76805; 76818; 80305; 81003; 85025; 86592; 86703; 86762; 86850; 86900; 87340; 87426; 99281; G0378; J0595; J2795; J3490; J7120; A4315; J2590

== ENCOUNTER 2023-01-23 19:50 | Emergency (ER) | payer MEDICAID | END 2023-01-23 21:22 | disposition left against medical advice (07) | LOC: ER 19:50 | DX: Z53.21 Procedure and treatment not carried out due to patient leaving prior to being seen by health care provider (principal) | CPT/HCPCS: 99281 ==

== ENCOUNTER 2023-02-08 04:55 | Emergency (ER) | payer MEDICAID ==
[~2023-02-08] VITALS: Ht 162.6 cm; Wt 117.0 kg
[2023-02-08 04:56] VITALS: BP 160/70
== END 2023-02-08 06:06 | disposition left against medical advice (07) ==
LOC: ER 04:55
DX: R11.2 Nausea with vomiting, unspecified (principal); Z53.21 Procedure and treatment not carried out due to patient leaving prior to being seen by health care provider
CPT/HCPCS: 99281

== ENCOUNTER 2023-05-14 01:17 | Emergency (ER) | payer MEDICAID ==
[~2023-05-14] VITALS: Ht 157.5 cm; Wt 83.0 kg
[2023-05-14 01:27] VITALS: TEMP 97.8; O2SAT 98
[2023-05-14] MEDS ORDERED: KETOROLAC 30MG/ML VIAL IM ONE (03:45)
[2023-05-14 03:49] LABS: CHLORIDE 106 mEq/L (98-107)
[2023-05-14 03:54] LABS: BASOPHILS % 0.6 % (0.0-2.0); EOSINOPHILS % 7.6 % (0.0-5.0); HEMATOCRIT. 36.7 % (36.0-48.0); HEMOGLOBIN. 11.7 g/dL (12.0-16.0); LYMPHOCYTES % 34.6 % (20.0-50.0); MEAN CORPUSCULAR HEMOGLOBIN 23.2 pg (28.0-32.0); MEAN CORPUSCULAR VOLUME 72.6 fL (81.0-99.0); MEAN PLATELET VOLUME 7.9 fl (7.4-10.4); NEUTROPHILS % 51.2 % (40.0-76.0); PLATELET 303 x1000/uL (130-400); RED BLOOD CELL COUNT 5.06 mill/uL (4.2-5.4); RED CELL DISTRIBUTION WIDTH 15.9 % (11.6-14.6)
[2023-05-14 04:17] LABS: HCG SCREEN NEGATIVE
[2023-05-14] MEDS ORDERED: IBUP-2029 MT (04:34)
[2023-05-14 05:30] VITALS: BP 125/66; PULSE 85; RESP 18
[2023-05-14] MEDS: KETOROLAC 30MG/ML VIAL IM NR (05:30)
[2023-05-14] MEDS ORDERED: FERR324T4 MT (05:41)
== END 2023-05-14 06:00 | disposition home or self-care (01) ==
LOC: ER 01:17
DX: N94.6 Dysmenorrhea, unspecified (principal); N92.0 Excessive and frequent menstruation with regular cycle; D64.9 Anemia, unspecified; I10 Essential (primary) hypertension
CPT/HCPCS: 80053; 84703; 85025; 86850; 86900; 86901; 36415; 76830; 76856; 96372; 99285; J1885; Z7610

== ENCOUNTER 2023-06-05 01:42 | Emergency (ER) | payer MEDICAID ==
[~2023-06-05] VITALS: Ht 172.7 cm; Wt 113.0 kg
[~2023-06-05 01:42] MED LIST changes: -AZIT250T12 MT; +FERR324T4 MT; +IBUP-2029 MT; -IBUP-2030 MT; -METH-773 MT; -ONDA4TAB11 PO; -ONDA4TAB50 MT; -TOPUD PO
[2023-06-05 01:44] VITALS: O2SAT 100
[2023-06-05] MEDS: MAGNESIUM/ALUMINUM HYDROXIDE/SIMETHICONE 30ML UDC PO STA ×2 (04:00→05:50)
[2023-06-05] MEDS: ACETAMINOPHEN 325MG TABLET PO STA (04:00)
[2023-06-05 04:38] LABS: BASOPHILS % 0.6 % (0.0-2.0); DIFFERENTIAL COMMENT 0; EOSINOPHILS % 3.1 % (0.0-5.0); HEMATOCRIT. 33.5 % (36.0-48.0); HEMOGLOBIN. 10.5 g/dL (12.0-16.0); LYMPHOCYTES % 15.3 % (20.0-50.0); MEAN CORPUSCULAR HEMOGLOBIN 22.9 pg (28.0-32.0); MEAN CORPUSCULAR HGB CONC 31.4 g/dL (31.0-37.0); MEAN CORPUSCULAR VOLUME 73.1 fL (81.0-99.0); MEAN PLATELET VOLUME 8.5 fl (7.4-10.4); PLATELET 232 x1000/uL (130-400); RED BLOOD CELL COUNT 4.59 mill/uL (4.2-5.4); WHITE BLOOD COUNT 7.7 x1000/uL (4.5-11.0)
[2023-06-05 04:54] LABS: CALCIUM 9.1 mg/dL (8.5-10.1); CHLORIDE 108 mEq/L (98-107); INDEX HEMOLYSI 1 (1-3); INDEX ICTERIC 1 (1-4); INDEX LIPEMIC 1 (1-3); POTASSIUM 3.6 mEq/L (3.5-5.1); SODIUM 137 mEq/L (136-145)
[2023-06-05 05:01] LABS: ALANINE AMINOTRANSFERASE 85 IU/L (13-61); ALBUMIN 3.2 g/dL (3.4-5.0); ASPARTATE AMINOTRANSFERASE 186 IU/L (15-37); BILIRUBIN TOTAL 0.3 mg/dL (0.1-1.0); CARBON DIOXIDE 25 mEq/L (21-32); CREATININE 0.8 mg/dL (0.6-1.3); GLUCOSE 133 mg/dL (70-105); UREA NITROGEN BLOOD 12 mg/dL (7-21)
[2023-06-05 05:30] LABS: HCG SCREEN NEGATIVE
[2023-06-05] MEDS ORDERED: FAMO-135 MT (05:31)
[2023-06-05 11:55] VITALS: BP 116/67; PULSE 64; RESP 19; TEMP 97.7
== END 2023-06-05 12:00 | disposition left against medical advice (07) ==
LOC: ER 01:53
DX: R07.89 Other chest pain (principal); Z88.0 Allergy status to penicillin
CPT/HCPCS: 36415; 71045; 76705; 80053; 84703; 85025; 99285

== ENCOUNTER 2023-08-04 07:46 | Emergency (ER) | payer MEDICAID ==
[~2023-08-04] VITALS: Ht 170.2 cm; Wt 110.0 kg
[~2023-08-04 07:46] MED LIST changes: +FAMO-135 MT
[2023-08-04 07:48] VITALS: O2SAT 100
[2023-08-04] MEDS ORDERED: KETOROLAC 30MG/ML VIAL IV STA (07:53)
[2023-08-04] MEDS ORDERED: FAMOTIDINE 20MG/2ML VIAL IV STA (07:53)
[2023-08-04 08:22] LABS: CHLORIDE 107 mEq/L (98-107); INDEX HEMOLYSI 1 (1-3); INDEX ICTERIC 1 (1-4); INDEX LIPEMIC 1 (1-3); POTASSIUM 3.6 mEq/L (3.5-5.1); SODIUM 140 mEq/L (136-145)
[2023-08-04 08:27] LABS: BASOPHILS % 0.5 % (0.0-2.0); DIFFERENTIAL COMMENT 0; EOSINOPHILS % 5.7 % (0.0-5.0); HEMATOCRIT. 35.2 % (36.0-48.0); LYMPHOCYTES % 32.2 % (20.0-50.0); MEAN CORPUSCULAR HGB CONC 31.2 g/dL (31.0-37.0); MEAN CORPUSCULAR VOLUME 73.8 fL (81.0-99.0); MEAN PLATELET VOLUME 8.5 fl (7.4-10.4); MONOCYTES % 8.2 % (2.0-8.0); NEUTROPHILS % 53.4 % (40.0-76.0); PLATELET 232 x1000/uL (130-400); RED BLOOD CELL COUNT 4.77 mill/uL (4.2-5.4); RED CELL DISTRIBUTION WIDTH 15.2 % (11.6-14.6); WHITE BLOOD COUNT 5.5 x1000/uL (4.5-11.0)
[2023-08-04 08:29] LABS: ALANINE AMINOTRANSFERASE 64 IU/L (13-61); ALBUMIN 3.4 g/dL (3.4-5.0); ASPARTATE AMINOTRANSFERASE 69 IU/L (15-37); BILIRUBIN TOTAL 0.2 mg/dL (0.1-1.0); CALCIUM 9.2 mg/dL (8.5-10.1); CARBON DIOXIDE 28 mEq/L (21-32); CREATININE 0.7 mg/dL (0.6-1.3); GLUCOSE 120 mg/dL (70-105); INR 0.9; PROTEIN TOTAL 7.2 g/dL (6.0-8.3); PROTHROMBIN TIME 10.1 sec (9.6-11.0); UREA NITROGEN BLOOD 9 mg/dL (7-21)
[2023-08-04 08:33] LABS: HCG SCREEN NEGATIVE
[2023-08-04] MEDS ORDERED: MORPHINE SULFATE 4 MG/ML CPJ (NOT FOR IM USE) IV ONE (09:15)
[2023-08-04 09:21] LABS: CLARITY URINE CLEAR (CLEAR); COLOR URINE YELLOW (YELLOW); GLUCOSE URINE NEGATIVE (NEGATIVE); KETONES URINE NEGATIVE (NEGATIVE); LEUKOCYTE ESTERASE URINE 1+ (NEGATIVE); NITRITE URINE NEGATIVE (NEGATIVE); OCCULT BLOOD URINE NEGATIVE (NEGATIVE); PH URINE 6.5 (4.5-8.0); PROTEIN URINE NEGATIVE (NEGATIVE); SPECIFIC GRAVITY URINE 1.021 (1.005-1.030)
[2023-08-04] MEDS ORDERED: FAMO40TA70 PO (10:05)
[2023-08-04] MEDS ORDERED: IBUP-2030 PO (10:05)
[2023-08-04 10:10] LABS: SQUAMOUS EPITHELIAL CELL URINE 3+ /lpf (RARE/1+)
[2023-08-04 10:11] LABS: BACTERIA URINE TRACE; RBC URINE 0-2 /hpf (0-2); WBC URINE 0-2 /hpf (0-2)
[2023-08-04 10:37] VITALS: BP 121/75; PULSE 70; RESP 17; TEMP 98.8
== END 2023-08-04 10:39 | disposition home or self-care (01) ==
LOC: ER 07:46
DX: K80.50 Calculus of bile duct without cholangitis or cholecystitis without obstruction (principal); I10 Essential (primary) hypertension; Z88.0 Allergy status to penicillin; Z91.013 Allergy to seafood; Z91.040 Latex allergy status; Z88.8 Allergy status to other drugs, medicaments and biological substances; Z79.899 Other long term (current) drug therapy
CPT/HCPCS: 80053; 81003; 84703; 83690; 85025; 85610; 36415; 76705; 96374; 96375; 99285; J3490; J1885; Z7610 ×2

== ENCOUNTER 2023-12-13 17:07 | Emergency (ER) | payer OTHER, MEDICAID ==
[~2023-12-13 17:07] MED LIST changes: +FAMO40TA70 PO; +IBUP-2030 PO
[2023-12-13 17:12] VITALS: PULSE 87; RESP 19; O2SAT 99
== END 2023-12-13 18:23 | disposition left against medical advice (07) ==
LOC: ER 17:07
DX: H57.89 Other specified disorders of eye and adnexa (principal); Z53.21 Procedure and treatment not carried out due to patient leaving prior to being seen by health care provider
CPT/HCPCS: 99281

== ENCOUNTER 2024-07-19 03:08 | Emergency (ER) | payer OTHER, MEDICAID ==
[~2024-07-19] VITALS: Ht 157.5 cm; Wt 108.0 kg
[2024-07-19 03:16] VITALS: O2SAT 97
[2024-07-19 06:30] VITALS: BP 121/65; PULSE 19; RESP 17; TEMP 36.61404; O2SAT 100
== END 2024-07-19 07:25 | disposition home or self-care (01) ==
LOC: ER 03:08
DX: K08.89 Other specified disorders of teeth and supporting structures (principal); Z87.19 Personal history of other diseases of the digestive system; Z88.0 Allergy status to penicillin; Z88.3 Allergy status to other anti-infective agents; Z88.6 Allergy status to analgesic agent
CPT/HCPCS: 99281

== ENCOUNTER 2024-07-26 12:57 | Emergency (ER) | payer OTHER, MEDICAID ==
[~2024-07-26] VITALS: Ht 157.5 cm; Wt 122.0 kg
[2024-07-26 13:00] VITALS: TEMP 98.6; O2SAT 100
[2024-07-26] MEDS: ONDANSETRON 4MG ODT PO STA (13:34)
[2024-07-26 13:40] LABS: BASOPHILS % 0.8 % (0.0-2.0); DIFFERENTIAL COMMENT 0; EOSINOPHILS % 3.1 % (0.0-5.0); HEMATOCRIT. 39.3 % (36.0-48.0); HEMOGLOBIN. 12.5 g/dL (12.0-16.0); MEAN CORPUSCULAR HEMOGLOBIN 24.2 pg (28.0-32.0); MEAN CORPUSCULAR HGB CONC 31.8 g/dL (31.0-37.0); MEAN CORPUSCULAR VOLUME 75.9 fL (81.0-99.0); MEAN PLATELET VOLUME 7.7 fl (7.4-10.4); MONOCYTES % 6.4 % (2.0-8.0); NEUTROPHILS % 56.7 % (40.0-76.0); PLATELET 284 x1000/uL (130-400); RED BLOOD CELL COUNT 5.18 mill/uL (4.2-5.4); RED CELL DISTRIBUTION WIDTH 15.5 % (11.6-14.6); WHITE BLOOD COUNT 6.7 x1000/uL (4.5-11.0)
[2024-07-26 13:46] LABS: CHLORIDE 109 mEq/L (98-107); POTASSIUM 3.8 mEq/L (3.5-5.1); SODIUM 140 mEq/L (136-145)
[2024-07-26 13:47] LABS: CARBON DIOXIDE 24 mEq/L (21-32)
[2024-07-26 13:48] LABS: CALCIUM 9.4 mg/dL (8.7-10.4)
[2024-07-26 13:51] LABS: HCG SCREEN NEGATIVE; INR 1.1; PROTHROMBIN TIME 11.8 sec (9.6-11.0)
[2024-07-26 13:52] LABS: CREATININE 0.7 mg/dL (0.6-1.0); GLUCOSE 118 mg/dL (70-105)
[2024-07-26 13:53] LABS: UREA NITROGEN BLOOD 11 mg/dL (9-23)
[2024-07-26 13:54] LABS: ALANINE AMINOTRANSFERASE 14 IU/L (10-49); ALBUMIN 4.8 g/dL (3.2-4.8); ASPARTATE AMINOTRANSFERASE 20 IU/L (<34)
[2024-07-26 13:55] LABS: BILIRUBIN TOTAL 0.3 mg/dL (0.1-1.0); PROTEIN TOTAL 7.9 g/dL (6.0-8.3)
[2024-07-26 14:03] LABS: BILIRUBIN DIRECT < 0.1 mg/dL (<=3.0)
[2024-07-26 16:44] VITALS: BP 116/74; PULSE 76; RESP 16; O2SAT 99
== END 2024-07-26 16:45 | disposition home or self-care (01) ==
LOC: ER 13:49
DX: F10.129 Alcohol abuse with intoxication, unspecified (principal); Z88.0 Allergy status to penicillin; Z79.1 Long term (current) use of non-steroidal anti-inflammatories (NSAID); Z90.49 Acquired absence of other specified parts of digestive tract; Z88.3 Allergy status to other anti-infective agents; Y90.9 Presence of alcohol in blood, level not specified
CPT/HCPCS: 99284; 80076; 80048; 84703; 83690; 85025; 85610; 36415; 93005; Q0162

== ENCOUNTER 2024-08-20 21:59 | Emergency (ER) | payer OTHER, MEDICAID ==
[~2024-08-20] VITALS: Ht 167.6 cm; Wt 100.0 kg
[2024-08-20 22:02] VITALS: O2SAT 95
[2024-08-21 00:12] LABS: BASOPHILS % 0.3 % (0.0-2.0); DIFFERENTIAL COMMENT 0; EOSINOPHILS % 3.4 % (0.0-5.0); HEMATOCRIT. 37.2 % (36.0-48.0); LYMPHOCYTES % 23.6 % (20.0-50.0); MEAN CORPUSCULAR HEMOGLOBIN 24.9 pg (28.0-32.0); MEAN CORPUSCULAR HGB CONC 32.1 g/dL (31.0-37.0); MEAN CORPUSCULAR VOLUME 77.6 fL (81.0-99.0); NEUTROPHILS % 64.7 % (40.0-76.0); PLATELET 224 x1000/uL (130-400); RED BLOOD CELL COUNT 4.79 mill/uL (4.2-5.4); RED CELL DISTRIBUTION WIDTH 14.7 % (11.6-14.6); WHITE BLOOD COUNT 9.7 x1000/uL (4.5-11.0)
[2024-08-21 00:19] LABS: CARBON DIOXIDE 26 mEq/L (21-32); CHLORIDE 109 mEq/L (98-107); POTASSIUM 3.6 mEq/L (3.5-5.1); SODIUM 140 mEq/L (136-145)
[2024-08-21 00:20] LABS: CALCIUM 9.4 mg/dL (8.7-10.4)
[2024-08-21 00:25] LABS: CREATININE 0.9 mg/dL (0.6-1.0); GLUCOSE 84 mg/dL (70-105); UREA NITROGEN BLOOD 7 mg/dL (9-23)
[2024-08-21 00:26] LABS: ALANINE AMINOTRANSFERASE 9 IU/L (10-49)
[2024-08-21 00:27] LABS: ALBUMIN 4.4 g/dL (3.2-4.8); ASPARTATE AMINOTRANSFERASE 21 IU/L (<34); BILIRUBIN DIRECT 0.1 mg/dL (<=3.0); BILIRUBIN TOTAL 0.5 mg/dL (0.1-1.0); PROTEIN TOTAL 7.2 g/dL (6.0-8.3)
[2024-08-21 00:35] LABS: HCG SCREEN NEGATIVE
[2024-08-21] MEDS ORDERED: IBUP-2029 MT (00:39)
[2024-08-21 01:28] LABS: CLARITY URINE CLEAR (CLEAR); COLOR URINE YELLOW (YELLOW); GLUCOSE URINE NEGATIVE (NEGATIVE); KETONES URINE NEGATIVE (NEGATIVE); LEUKOCYTE ESTERASE URINE 1+ (NEGATIVE); NITRITE URINE NEGATIVE (NEGATIVE); OCCULT BLOOD URINE NEGATIVE (NEGATIVE); PH URINE 6.5 (4.5-8.0); PROTEIN URINE NEGATIVE (NEGATIVE); SPECIFIC GRAVITY URINE 1.018 (1.005-1.030)
[2024-08-21 01:47] LABS: BACTERIA URINE TRACE; RBC URINE NONE SEEN /hpf (0-2); SQUAMOUS EPITHELIAL CELL URINE FEW /lpf (RARE/1+)
[2024-08-21] MEDS ORDERED: PHEN-815 MT (01:50)
[2024-08-21] MEDS ORDERED: NITR-87 MT (01:50)
[2024-08-21] MEDS: IBUPROFEN 600MG TABLET PO ONE (02:06)
[2024-08-21] MEDS: HYDROCODONE/ACETAMINOPHEN 5/325MG TABLET PO ONE (02:15)
[2024-08-21 03:00] VITALS: BP 141/78; PULSE 86; RESP 16; TEMP 37.16964; O2SAT 99
== END 2024-08-21 03:00 | disposition home or self-care (01) ==
LOC: ER 21:59
DX: N39.0 Urinary tract infection, site not specified (principal); Z90.49 Acquired absence of other specified parts of digestive tract; Z88.3 Allergy status to other anti-infective agents; Z88.0 Allergy status to penicillin; Z79.899 Other long term (current) drug therapy; Z91.013 Allergy to seafood
CPT/HCPCS: 36415; 76830; 76856; 80048; 80076; 81003; 84703; 85025; 99284

== ENCOUNTER 2025-01-28 11:24 | Emergency (ER) | payer MEDICAID, OTHER ==
[~2025-01-28] VITALS: Ht 157.5 cm; Wt 108.0 kg
[~2025-01-28 11:24] MED LIST changes: +NITR-87 MT; +PHEN-815 MT
[2025-01-28 11:32] VITALS: TEMP 37.1; O2SAT 98
[2025-01-28 12:18] VITALS: BP 127/83; PULSE 94; RESP 18
[2025-01-28] MEDS: IBUPROFEN 600MG TABLET PO STA (12:18)
[2025-01-28] MEDS: ONDANSETRON 4MG ODT PO ONE (12:42)
[2025-01-28 12:58] LABS: CLARITY URINE CLEAR (CLEAR); COLOR URINE YELLOW (YELLOW); GLUCOSE URINE NEGATIVE (NEGATIVE); KETONES URINE NEGATIVE (NEGATIVE); LEUKOCYTE ESTERASE URINE NEGATIVE (NEGATIVE); NITRITE URINE NEGATIVE (NEGATIVE); OCCULT BLOOD URINE NEGATIVE (NEGATIVE); PH URINE 5.5 (4.5-8.0); PROTEIN URINE 1+ (NEGATIVE); SPECIFIC GRAVITY URINE 1.022 (1.005-1.030); UROBILINOGEN URINE 0.2 E.U./dL (0.2-1.0)
[2025-01-28 13:17] LABS: MUCUS URINE 3+ /lpf (< = 2+); SQUAMOUS EPITHELIAL CELL URINE 2+ /lpf (RARE/1+)
[2025-01-28] MEDS ORDERED: IBUP-2029 MT (13:17)
[2025-01-28 13:18] LABS: FINE GRANULAR CASTS URINE 0-5 /lpf
[2025-01-28 13:19] LABS: BACTERIA URINE 2+; RBC URINE 0-2 /hpf (0-2)
== END 2025-01-28 13:33 | disposition home or self-care (01) ==
LOC: ER 11:24
DX: R07.89 Other chest pain (principal); R10.9 Unspecified abdominal pain; Z90.49 Acquired absence of other specified parts of digestive tract; Z79.1 Long term (current) use of non-steroidal anti-inflammatories (NSAID); Z79.899 Other long term (current) drug therapy; Z88.3 Allergy status to other anti-infective agents; Z88.0 Allergy status to penicillin; Z91.040 Latex allergy status; Z91.018 Allergy to other foods; Z91.013 Allergy to seafood
CPT/HCPCS: 99285; 71045; 81003; 81025; 93005; Q0162

== ENCOUNTER 2025-04-19 19:12 | Emergency (ER) | payer MEDICAID ==
[~2025-04-19] VITALS: Ht 157.5 cm; Wt 118.0 kg
[2025-04-19 19:54] VITALS: O2SAT 96
[2025-04-19] MEDS: ACETAMINOPHEN 500MG TABLET PO ONE (22:11)
[2025-04-19] MEDS ORDERED: CEPH500T MT (23:33)
[2025-04-19] MEDS ORDERED: NAPR-1176 MT (23:33)
[2025-04-19 23:45] VITALS: BP 137/78; PULSE 97; RESP 18; TEMP 36.5; O2SAT 97
[2025-04-19] MEDS: CEPHALEXIN 250MG CAPSULE PO ONE (23:52)
== END 2025-04-19 23:54 | disposition home or self-care (01) ==
LOC: ER 19:12
DX: N60.19 Diffuse cystic mastopathy of unspecified breast (principal); N61.0 Mastitis without abscess; Z79.1 Long term (current) use of non-steroidal anti-inflammatories (NSAID); Z88.0 Allergy status to penicillin; Z88.3 Allergy status to other anti-infective agents; Z90.710 Acquired absence of both cervix and uterus
CPT/HCPCS: 76642; 81025; 99284

== ENCOUNTER 2025-05-01 15:39 | Emergency (ER) | payer MEDICAID ==
[~2025-05-01] VITALS: Ht 165.1 cm; Wt 170.0 kg
[~2025-05-01 15:39] MED LIST changes: +CEPH500T MT; +NAPR-1176 MT
[2025-05-01 15:50] VITALS: O2SAT 99
[2025-05-01 17:23] LABS: HEMATOCRIT. 40.1 % (36.0-48.0); HEMOGLOBIN. 12.5 g/dL (12.0-16.0); MEAN PLATELET VOLUME 8.0 fl (7.4-10.4); PLATELET 232 x1000/uL (130-400); RED BLOOD CELL COUNT 5.21 mill/uL (4.2-5.4); RED CELL DISTRIBUTION WIDTH 13.8 % (11.6-14.6)
[2025-05-01 17:28] LABS: CREATININE 0.8 mg/dL (0.6-1.0); UREA NITROGEN BLOOD 9 mg/dL (9-23)
[2025-05-01 18:59] LABS: EOSINOPHILS % MANUAL 8.0 % (0.0-5.0); LYMPHOCYTES % MANUAL 38.0 % (20.0-60.0); MONOCYTES % MANUAL 12.0 % (2.0-8.0); NEUTROPHILS % MANUAL 42.0 % (45.0-75.0); PLATELET ESTIMATE NORMAL
[2025-05-01] MEDS ORDERED: BENZ100C86 MT (19:22)
[2025-05-01] MEDS ORDERED: P50 MT (19:22)
[2025-05-01] MEDS ORDERED: GUAI-450 MT (19:22)
[2025-05-01] MEDS ORDERED: FLUT9.9S BOTHNSTRLS (19:22)
[2025-05-01] MEDS ORDERED: ALBU18HF2 IH (19:22)
[2025-05-01] MEDS: GUAIFENESIN/DM 600MG/30MG ER TAB 12HR PO STA (19:47)
[2025-05-01 20:04] LABS: HCG SCREEN NEGATIVE
[2025-05-01 20:13] VITALS: BP 159/62; PULSE 84; RESP 18; TEMP 36.9; O2SAT 99
== END 2025-05-01 20:13 | disposition home or self-care (01) ==
LOC: ER 15:39
DX: J06.9 Acute upper respiratory infection, unspecified (principal); B97.89 Other viral agents as the cause of diseases classified elsewhere; J45.909 Unspecified asthma, uncomplicated; R07.9 Chest pain, unspecified; Z90.710 Acquired absence of both cervix and uterus; Z88.0 Allergy status to penicillin; Z88.3 Allergy status to other anti-infective agents
CPT/HCPCS: 36415; 71045; 80048; 84703; 85025; 93005; 99285